=== PATIENT | female | born 1950 | race Caucasian/White ===

== ENCOUNTER 2022-03-08 07:20 | Day surgery (SDC) | payer MEDICARE ==
[2022-03-04 10:34] VITALS: BMI 30.4
[2022-03-08] MEDS ORDERED: Dexamethasone 20 MG/5 ML VIAL ONE ×2 (08:45→08:46)
[2022-03-08] MEDS ORDERED: PROPOFOL 20 ML ONE (08:45)
[2022-03-08] MEDS ORDERED: Fentanyl 100 MCG/2 ML VIAL ONE ×2 (08:45)
[2022-03-08] MEDS ORDERED: PROPOFOL 40 ML ONE (08:45)
[2022-03-08] MEDS ORDERED: Glycopyrrolate 0.2 MG/ML 5 ML SYRINGE ONE (08:45)
[2022-03-08] MEDS ORDERED: Midazolam HCl 2 mg/2 ml Vial ONE (08:45)
[2022-03-08] MEDS ORDERED: Ondansetron PF 4 MG/2 ML Vial ONE ×2 (08:45→08:46)
[2022-03-08] MEDS ORDERED: Sodium Chloride 0.9% 0 ML ONE (08:46)
[2022-03-08] MEDS ORDERED: EPINEPHrine 1 MG/ML AMP ONE (10:07)
[2022-03-08] MEDS ORDERED: Lidocaine 2% PF 5 ML VIAL ONE (10:10)
== END 2022-03-08 12:15 | disposition home or self-care (01) ==
LOC: CSHSDC 07:20
PROVIDERS: ATTEND Otolaryngology Otolaryngic Allergy
PROC: 0CBR8ZX Excision of Epiglottis, Via Natural or Artificial Opening Endoscopic, Diagnostic (ICD-10-PCS; principal; 2022-03-08)
PROC: 0CBS8ZX Excision of Larynx, Via Natural or Artificial Opening Endoscopic, Diagnostic (ICD-10-PCS; 2022-03-08)
DX: J38.7 Other diseases of larynx (principal); J05.10 Acute epiglottitis without obstruction; H90.3 Sensorineural hearing loss, bilateral; H26.9 Unspecified cataract; Z85.828 Personal history of other malignant neoplasm of skin; Z79.899 Other long term (current) drug therapy; Z88.8 Allergy status to other drugs, medicaments and biological substances; Z20.822 Contact with and (suspected) exposure to COVID-19; Z87.891 Personal history of nicotine dependence; Z90.49 Acquired absence of other specified parts of digestive tract; Z98.890 Other specified postprocedural states
CPT/HCPCS: 87070; 87102; 87205; 87206; 88305; 88342; J0171; J1100; J2001; J2250; J2405; J2704; J3010